=== PATIENT | male | born 1955 | race Caucasian/White ===

== ENCOUNTER → 2018-12-22 15:31 | Day surgery (SDC) | payer BC ==
[~2018-12-22 15:31] MED LIST: Acetaminophen TAB* 325 MG PO PRN; Buffered Lidocaine 1% SYRIN* 1 ML/SYRINGE INTRADERM ONE; Bupivacaine 0.25% SDV PF* 10 ML VIAL INJ ONE; Clindamycin 900 MG/D5W BAG(*) 900 MG/50 ML BAG IVPB ONE; Famotidine IV* 10 MG/ML 2 ML (20 mg) IV ONE; Famotidine IV* 10 MG/ML 2 ML (20 mg) ONE; Lactated Ringers 1000 ML Bag* 1,000 ML IV SCH; Lidocaine 2% PF * 5 ML VIAL ONE; Midazolam* 1 MG/ML 5 ML VIAL (5 MG) ONE; Naloxone* 0.4 MG/ML 1 ML VIAL IV PRN; Ondansetron INJ* 2 MG/ML VIAL ONE; Propofol* 500 MG/50 ML BTL ONE; fentaNYL* 50 MCG/ML 2 ML VIAL (100 MCG VIAL) ONE; oxyCODONE TAB* 5 MG TAB PO PRN
[2018-12-22 19:56] VITALS: BP 127/83
== END | disposition home or self-care (01) ==
LOC: OR 15:31
PROVIDERS: ATTEND Plastic Surgery
DX: M72.0 Palmar fascial fibromatosis [Dupuytren] (principal); E78.00 Pure hypercholesterolemia, unspecified; G47.33 Obstructive sleep apnea (adult) (pediatric); J30.2 Other seasonal allergic rhinitis; E66.9 Obesity, unspecified
CPT/HCPCS: 88304; J2250; J2405; J2704; J3010; J3490

== ENCOUNTER 2019-01-12 07:45 | Emergency (ER) | payer BC ==
[2019-01-12 07:55] VITALS: BP 154/99
--- NOTE | 2019-01-12 08:36 | UC ---
Skin Complaint HPI - HPI Summary HPI Summary: 64 yo started on doxycycline via telemed; comes today because of concern abut the appearance of the tick bite. Has taken 2 doses of doxycycline. He has no history of Lyme disease in the past, and no current fever or joint pain. - History of Current Complaint Chief Complaint: [employer] Time Seen by Provider: 01/12/19 08:29 Stated Complaint: tick BITE Hx Obtained From: Patient Onset/Duration: Sudden Onset, Lasting Hours Skin Exposure Onset/Duration: Days Ago - 4 Onset Severity: Mild Current Severity: Mild Pain Intensity: 0 Aggravating Factor(s): Touch Alleviating Factor(s): Nothing Associated Signs & Symptoms: Positive: Negative Related History: Insect Bite/Sting - Allergy/Home Medications Allergies/Adverse Reactions: Allergies Allergy/AdvReac Type Severity Reaction Status Date / Time cephalexin [From Keflex] Allergy Intermediate Hives Verified 01/12/19 07:55 Penicillins Allergy Intermediate Hives Verified 01/12/19 07:55 Home Medications: Home Medications NK [No Home Medications Reported] 01/12/19 [History Confirmed 01/12/19] PMH/Surg Hx/FS Hx/Imm Hx Previously Healthy: Yes - Surgical History Surgical History: Yes Surgery Procedure, Year, and Place: TONSILLECTOMY AND ADNOIDS A CHILD-. 2007 DEPUYTREN'S CONTRACTURE R, 2014, 2016 left depuytren's. WISDOM TEETH REMOVED when 18 years old. 2014 RIGHT INGUINAL HERNIA REPAIR - Family History Known Family History: Positive: Non-Contributory Family History: NON CONTRIBUTORY - Social History Occupation: Employed Full-time Lives: With Family Alcohol Use: Occasionally Alcohol Amount: GLASS WINE Substance Use Type: None Smoking Status (MU): Never Smoked Tobacco Have You Smoked in the Last Year: No Review of Systems All Other Systems Reviewed And Are Negative: Yes Constitutional: Positive: Negative. Negative: Fever, Fatigue Skin: Positive: Rash Eyes: Positive: Negative ENT: Positive: Negative Respiratory: Positive: Negative Cardiovascular: Positive: Negative Gastrointestinal: Positive: Negative Genitourinary: Positive: Negative Motor: Positive: Negative Neurovascular: Positive: Negative Musculoskeletal: Positive: Negative Neurological: Positive: Negative Psychological: Positive: Negative Is Patient Immunocompromised?: No Physical Exam Triage Information Reviewed: Yes Appearance: Well-Appearing, No Pain Distress Vital Signs: Initial Vital Signs Temp 99.2 F 01/12/19 07:50 Pulse 72 01/12/19 07:50 Resp 18 01/12/19 07:50 BP 154/99 01/12/19 07:50 Pulse Ox 97 01/12/19 07:50 Eye Exam: Normal ENT: Positive: Normal ENT inspection Dental Exam: Normal Neck exam: Normal Respiratory: Positive: Lungs clear, Normal breath sounds Cardiovascular: Positive: RRR, No Murmur Musculoskeletal Exam: Normal Neurological Exam: Normal Psychological Exam: Normal Skin Exam: Other - 5 x 3 cm area of erythema with deep central crust. No obvious mouthpiece. Course/Dx - Course Course Of Treatment: continue treatment of erythema migrains rash. Discussed hot compresses and antibiotic ointment to the central crust. - Differential Diagnoses - Skin Complaint Differential Diagnoses: Other - erythema migrans - Diagnoses Provider Diagnosis: Erythema migrans (Lyme disease) Discharge ED - Sign-Out/Discharge Documenting (check all that apply): Patient Departure All imaging exams completed and their final reports reviewed: No Studies - Discharge Plan Condition: Good Disposition: HOME Patient Education Materials: Lyme Disease (ED) Referrals: No Primary Care Phys,NOPCP [Primary Care Provider] - Additional Instructions: Continue the use of doxycycline, ensuring that you do not take it within 2 hours of dairy products. Anticipate that the rash will start to fade in about 2 to 3 days. Take the full dose of doxycycline, or follow up with your primary care doctor if you are not tolerating the antibiotic. - Billing Disposition and Condition Condition: GOOD Disposition: Home
== END 2019-01-12 08:47 | disposition home or self-care (01) ==
LOC: UCEAST 07:45
DX: A69.20 Lyme disease, unspecified (principal); Z88.1 Allergy status to other antibiotic agents; Z88.0 Allergy status to penicillin
CPT/HCPCS: 99211; G0463